=== PATIENT | male | born 1965 | race Asian ===

== ENCOUNTER 2018-02-01 14:05 | Outpatient (CLI) | payer OTHER ==
--- NOTE | 2018-02-01 17:41 | MRI ---
RIGHT KNEE MRI WITHOUT IV CONTRAST: 02/01/18 HISTORY: 53-year-old male with history of right knee pain for several weeks. Multiplanar and multisequence MRI examination of the right knee is performed. There is some mild tric ompartment articular cartilage loss with some minimal subchondral cystic changes of the central and l ateral patellar facet. Small interosseous cystic changes noted within the distal femoral metaphysis r egion without any adjacent abnormal marrow signal. There is a very extensive, mostly horizontal cleav age type tear involving the lateral meniscus extending from the posterior horn into the anterior horn . Large multiloculated paralabral cyst noted overlying the body of the lateral meniscus. In total, th is multiloculated cyst measures approximately 1.4 x 2.2 cm in transverse and craniocaudal dimension a nd approximately 4 cm in anterior posterior dimension noted adjacent to the entire body portion of th e lateral meniscus and also somewhat posteriorly as well. The medial meniscus shows some increased in trasubstance signal, evidence for some degenerative change. Anterior and posterior cruciate ligaments and collateral ligament complexes appear intact. There is some mild lateral bowing of the fibular co llateral ligament from the large parameniscal cyst. No significant abnormal joint effusion. No acute abnormal marrow signal. IMPRESSION: Large somewhat complex mostly horizontal cleavage type tear of the lateral meniscus with a very large adjacent parameniscal cyst with some lateral displacement of the fibular collateral ligament as well as the posterior aspect of the iliotibial band. Two small nonaggressive distal femoral metaphyseal i nterosseous cystic changes. Mild osteoarthrosis and minimal cartilage loss. POS: [facility]
== END 2018-02-01 14:06 | disposition home or self-care (01) ==
LOC: SCSMRI 14:05
DX: M25.561 Pain in right knee (principal); M17.11 Unilateral primary osteoarthritis, right knee; M94.8X6 Other specified disorders of cartilage, lower leg; M23.000 Cystic meniscus, unspecified lateral meniscus, right knee

== ENCOUNTER 2020-04-21 10:42 | Outpatient (CLI) | payer OTHER ==
--- NOTE | 2020-04-21 11:04 | RAD ---
EXAM: Cervical spine radiographs 4 views PROVIDED CLINICAL HISTORY: Neck pain COMPARISON: None FINDINGS: Cervical alignment appears normal. Vertebral body heights appear preserved. Mild disc space narrowing at C6-7 with associated endplate degenerative change. Bilateral facet arthritis at this level. Intervertebral disc space heights appear otherwise preserved. No prevertebral soft tissue swelling ap parent. No evidence for fracture. The visualized lung apices appear clear. IMPRESSION: Cervical disc degenerative change as described.
== END 2020-04-21 10:43 | disposition home or self-care (01) ==
LOC: SCSRAD 10:42
PROVIDERS: ATTEND Family Medicine
DX: M54.2 Cervicalgia (principal); M50.323 Other cervical disc degeneration at C6-C7 level
CPT/HCPCS: 72040